=== PATIENT | female | born 1980 | race African-American/Black ===

== ENCOUNTER 2017-11-13 21:04 | Emergency (ER) | payer BC ==
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
[2017-11-14] MEDS ORDERED: IBUPROFEN 600 MG TABLET PO ONE (01:35)
== END 2017-11-14 02:08 | disposition home or self-care (01) ==
LOC: ER 21:04
DX: S09.90XA Unspecified injury of head, initial encounter (principal); S00.83XA Contusion of other part of head, initial encounter; S50.02XA Contusion of left elbow, initial encounter; Y04.0XXA Assault by unarmed brawl or fight, initial encounter; F17.200 Nicotine dependence, unspecified, uncomplicated
CPT/HCPCS: 70450; 99284

== ENCOUNTER 2019-02-20 16:11 | Emergency (ER) | payer OTHER, BC ==
[2019-02-20 16:20] VITALS: BP 150/88
[2019-02-20] MEDS ORDERED: IBUPROFEN 800 MG TABLET PO ONE (16:25)
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
--- NOTE | 2019-02-20 16:57 | RADIOLOGY REPORT (SQ) ---
EXAM DESCRIPTION: TIBIA FIBULA LEFT COMPLETED DATE/TIME: 02/20/2019 4:45 pm REASON FOR STUDY: PAIN COMPARISON: None. NUMBER OF VIEWS: Two views. TECHNIQUE: Two radiographic images acquired of the left tibia and fibula to include the knee and ank le in at least one projection. LIMITATIONS: None. FINDINGS: MINERALIZATION: Normal. BONES: No acute fracture or dislocation. No worrisome bone lesions. SOFT TISSUES: No obvious swelling or foreign body. OTHER: No other significant finding. IMPRESSION: NO RADIOGRAPHIC EVIDENCE OF ACUTE INJURY. TECHNICAL DOCUMENTATION: JOB ID: [id number] [employer]- All Rights Reserved Reading location - IP/workstation name: [email or web address]
== END 2019-02-20 17:36 | disposition home or self-care (01) ==
LOC: ER 16:11
DX: M89.8X6 Other specified disorders of bone, lower leg (principal); M79.652 Pain in left thigh; V03.90XA Pedestrian on foot injured in collision with car, pick-up truck or van, unspecified whether traffic or nontraffic accident, initial encounter; Y93.89 Activity, other specified; F17.210 Nicotine dependence, cigarettes, uncomplicated
CPT/HCPCS: 99283